=== PATIENT | female | born 1985 | race American Indian/Alaskan Native ===

== ENCOUNTER 2017-04-30 14:43 | Emergency (ER) | payer OTHER ==
[~2017-04-30] VITALS: Ht 160 cm; Wt 61.4 kg
[~2017-04-30 14:43] MED LIST: FERR324T8 PO; HYDR-3138 PO; PREN1TAB56 PO; SULF1TAB24 PO; TAMS-11 PO
[2017-04-30] MEDS ORDERED: MORPHINE SULFATE 4 MG/ML, 1ML ONE (15:16)
[2017-04-30] MEDS ORDERED: ONDANSETRON 2MG/ML, 2ML ONE (15:17)
[2017-04-30] MEDS ORDERED: FAMOTIDINE 20 MG/2 ML ONE (15:17)
[2017-04-30] MEDS ORDERED: FAMOTIDINE 20 MG/2 ML IVP ONE (15:30)
[2017-04-30] MEDS ORDERED: SODIUM CHLORIDE 0.9% 1,000ML IVBOLUS ONE ×2 (15:30→17:00)
[2017-04-30] MEDS ORDERED: ONDANSETRON 2MG/ML, 2ML IVPush ONE (15:30)
[2017-04-30] MEDS ORDERED: SODIUM CHLORIDE FLUSH 10ML SYR IVF ONE (15:30)
[2017-04-30] MEDS ORDERED: MORPHINE SULFATE 4 MG/ML, 1ML IVPush PRN (15:30)
[2017-04-30 15:40] LABS: ASPARTATE AMINO TRANSFERASE 18 U/L (15-37); BLOOD UREA NITROGEN 10 mg/dL (7-18)
[2017-04-30] MEDS ORDERED: METOCLOPRAMIDE 5 MG/ML, 2ML ONE (16:38)
[2017-04-30] MEDS ORDERED: METOCLOPRAMIDE 5 MG/ML, 2ML IVPush ONE (17:00)
[2017-04-30] MEDS ORDERED: OMNIPAQUE 350 MG/ML, 100ML BOTTLE ONE (17:28)
[2017-04-30] MEDS ORDERED: LORazepam 2 MG/ML, 1ML ONE (18:17)
[2017-04-30] MEDS ORDERED: LORazepam 2 MG/ML, 1ML IVPush ONE (18:30)
[2017-04-30] MEDS ORDERED: SODIUM CHLORIDE 0.9% 1,000 ML IV ONE (19:17)
[2017-04-30] MEDS ORDERED: SODIUM CHLORIDE FLUSH 10ML SYR IVF PRN (19:30)
[2017-04-30 20:44] VITALS: BP 110/62
== END 2017-04-30 21:38 | disposition short-term general hospital (02) ==
LOC: ED 16:10 → UNDOADMIN 19:32 → EDIP 19:32 → ED 21:38
DX: K52.89 Other specified noninfective gastroenteritis and colitis (principal); Z85.41 Personal history of malignant neoplasm of cervix uteri; Z98.51 Tubal ligation status; F12.10 Cannabis abuse, uncomplicated
CPT/HCPCS: 36415; 74177; 80053; 81003; 83690; 84703; 85025; 96361; 96374; 96375; 99285; J2060; J2405; J2765; J7030; Q9967; S0028